=== PATIENT | female | born 1955 | race Caucasian/White ===

== ENCOUNTER 2018-07-11 18:55 | Emergency (ER) | payer MEDICAID ==
[~2018-07-11] VITALS: Ht 144.8 cm; Wt 64.0 kg
[2018-07-11 19:01] VITALS: Ht 144.8 cm; Wt 64.0 kg
[2018-07-11] MEDS ORDERED: IBUP-1561 PO (22:32)
--- NOTE | 2018-07-11 22:37 | ERD ---
ER Documentation Chief Complaint Chief Complaint C/O RT UPPER BACK BUMP X5 YEARS, PAIN X3 DAYS HPI This 82-year-old female presents to the ED with complaints of a progressively enlarging bump to her right upper back times 5 years. Patient states bump is painful, especially when sleeping. She states the son tried to pop the bumper earlier today and noticed a greenish, foul-smelling discharge. She denies any fevers, chills. No other complaints. ROS All systems reviewed and are negative except as per history of present illness. Medications Home Meds Active Scripts Ibuprofen* (Motrin*) 400 Mg Tab, 400 MG PO Q6H PRN for PAIN AND OR ELEVATED TEMP, #30 TAB Prov:KIMBERLY SORIA PA-C 07/11/18 Allergies Allergies: Coded Allergies: No Known Allergy (Unverified , 07/11/18) PMhx/Soc Medical and Surgical Hx: pt denies Medical Hx, pt denies Surgical Hx History of Surgery: No Anesthesia Reaction: No Hx Neurological Disorder: No Hx Respiratory Disorders: No Hx Cardiac Disorders: No Hx Psychiatric Problems: No Hx Miscellaneous Medical Probl: No Hx Alcohol Use: No Hx Substance Use: No Hx Tobacco Use: No Smoking Status: Never smoker Physical Exam Vitals Vital Signs Date Temp Pulse Resp B/P (MAP) Pulse Ox O2 O2 Flow FiO2 Time Delivery Rate 07/11/18 99.0 80 19 158/77 97 19:01 (104) Physical Exam Const: No acute distress Head: Atraumatic Eyes: Normal Conjunctiva ENT: Normal External Ears, Nose and Mouth. Neck: Full range of motion. No meningismus. Skin: No petechiae or rashes Back: + Upper back with a 2 x 2 cm nodule with central punctate, mild tenderness to palpation, non-mobile. No surrounding erythema. No discharge. Neur: Awake and alert Psych: Normal Mood and Affect Procedures/MDM This is a 62-year-old female with no severe past medical history presents with a bump to her upper back. Physical exam is consistent with an epidermal cyst versus lipoma. No evidence of infection, abscess, cellulitis and therefore no need for antibiotics. I discussed with son and mother at bedside that he needs to be excised either by general surgeon or by clay thrower. I am giving them a referral to [facility] in [facility] to get this done. She does not need any further emergent workup. She is discharged home with ibuprofen to take as needed for pain, otherwise return to the ED for any new or worsening symptoms. Blood Pressure Assessment: Patient's blood pressure was elevated (>120/80) but appears stable without evidence of hypertension emergency or urgency. The patient was counseled about the risks of hypertension and urged to pursue outpatient monitoring and therapy within a week with their primary care physician. Departure Diagnosis: Primary Impression: Epidermoid cyst Condition: Stable Patient Instructions: Lipoma [facility]: [facility] [place] [facility] Jul 11, 2018 22:37
[2018-07-11 22:45] VITALS: BP 146/73; PULSE 68; RESP 18
== END 2018-07-11 22:46 | disposition home or self-care (01) ==
LOC: FTE 18:55
DX: L72.0 Epidermal cyst (principal)
CPT/HCPCS: 99282